=== PATIENT | male | born 1995 | race Caucasian/White ===

== ENCOUNTER 2021-08-10 20:42 | Emergency (ER) | payer BC, OTHER ==
[~2021-08-10] VITALS: Ht 177.8 cm; Wt 121.2 kg
[2021-08-10 21:16] VITALS: BP 152/104
[2021-08-10 21:18] LABS: BILIRUBIN,URINE NEGATIVE (NEGATIVE); CLARITY,URINE CLEAR; COLOR,URINE YELLOW; GLUCOSE, URINE (UA) NEGATIVE (NEGATIVE); KETONES,URINE TRACE (NEGATIVE); LEUKOCYTE ESTERASE ,URINE NEGATIVE (NEGATIVE); NITRITE,URINE NEGATIVE (NEGATIVE); PROTEIN,URINE NEGATIVE (NEGATIVE)
--- NOTE | 2021-08-10 21:23 | ED GU-Male ---
General Chief Complaint: - Reproductive Stated Complaint: GROIN PAIN Source: patient Exam Limitations: no limitations History of Present Illness Date Seen by Provider: Aug 10, 2021 Time Seen by Provider: 21:20 Initial Comments Patient is a 25-year-old male who presents ED with right testicle pain. acute onset this morning. Pain described as dull aching constant with worsening pain this evening. Worse with walking or movement. denies of any obvious swelling or redness. Denies of any urinary symptoms such as pain with urination, increased urine frequency. Denies of any abdominal pain. He is not concern for sexual transmitted infection. Denies of any penile lesions or discharge. Denies of any trauma or history of similar symptoms. Denies chest pain, shortness of breath, fever, chills, headache, dizziness. Allergies and Home Medications Allergies Coded Allergies: No Known Drug Allergies (Unverified , 08/10/21) Patient Home Medication List Levofloxacin (Levofloxacin) 500 Mg Tablet, 500 MG PO DAILY Prescribed by: HERO GAYTAN on 08/10/212236 Review of Systems Review of Systems Constitutional: No chills, No diaphoresis, No malaise, No weakness EENTM: No ear pain, No blurred vision, No double vision Respiratory: No cough, No dyspnea on exertion Cardiovascular: No chest pain Gastrointestinal: No abdominal pain, No diarrhea, No nausea, No vomiting Genitourinary: denies burning, denies discharge, denies frequency, denies flank pain Musculoskeletal: No back pain, No joint pain, No joint swelling Skin: No change in color All Other Systemes Reviewed Negative Unless Noted: Yes Past Hkfilew-[id number]-Tdfdgp Hx Patient Social History Tobacco Use?: Yes Tobacco type used: Cigarettes Smoking Status: Current Everyday Smoker Use of E-Cig and/or Vaping dev: No Substance use?: No Alcohol Use?: No Pt feels they are or have been: No Immunizations Up To Date Influenza Vaccine Up-to-Date: No; Not Current Second COVID19 Vaccination Patric: 08/27 COVID19 Vaccine Nnp: Theresa Physical Exam Vital Signs Vital Signs - First Documented 08/10/21 21:16 Temp 36.9 Pulse 106 Resp 16 B/P (MAP) 152/104 (120) Pulse Ox 98 O2 Delivery Room Air Capillary Refill : Height, Weight, BMI Height: '" Weight: lbs. oz. kg; BMI Method: General Appearance: WD/WN, no apparent distress HEENT: PERRL/EOMI, normal ENT inspection, TMs normal, pharynx normal Neck: non-tender, full range of motion, supple, normal inspection Cardiovascular: regular rate, rhythm, no edema, no gallop, no JVD Respiratory: chest non-tender, lungs clear, normal breath sounds, no respiratory distress, no accessory muscle use Gastrointestinal: normal bowel sounds, non tender, soft, no organomegaly Genital/Rectal: other (Right scrotum tenderness without swelling or erythema. No lesions or penile lesions. 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 tested, no motor/sensory deficits, alert, normal mood/affect, oriented x 3 Skin: normal color, warm/dry Progress/Results/Core Measures Suspected Sepsis SIRS Temperature: Pulse: Respiratory Rate: Laboratory Tests 08/10/21 21:39: White Blood Count 15.6H Blood Pressure / Mean: Laboratory Tests 08/10/21 21:39: Creatinine 1.01, Platelet Count 292, Total Bilirubin 0.6 Results/Orders Lab Results Laboratory Tests Test 08/10/21 21:10 08/10/21 21:39 Range/Units Urine Color YELLOW Urine Clarity CLEAR Urine pH 6.0 5-9 Urine Specific [place] 1.025 H 1.016-1.022 Urine Protein NEGATIVE NEGATIVE Urine Glucose (UA) NEGATIVE NEGATIVE Urine Ketones TRACE H NEGATIVE Urine Nitrite NEGATIVE NEGATIVE Urine Bilirubin NEGATIVE NEGATIVE Urine Urobilinogen 0.2 < = 1.0 MG/DL Urine Leukocyte Esterase NEGATIVE NEGATIVE Urine RBC (Auto) TRACE-I H NEGATIVE Urine RBC 0-2 /HPF Urine WBC NONE /HPF Urine Squamous Epithelial Cells NONE /HPF Urine Renal Epithelial Cells NONE /HPF Urine Crystals NONE /LPF Urine Bacteria NEGATIVE /HPF Urine Casts NONE /LPF Urine Mucus NEGATIVE /LPF Urine Culture Indicated NO White Blood Count 15.6 H 4.3-11.0 10^3/uL Red Blood Count 5.13 4.30-5.52 10^6/uL Hemoglobin 15.8 13.3-17.7 g/dL Hematocrit 47 40-54 % Mean Corpuscular Volume 92 80-99 fL Mean Corpuscular Hemoglobin 31 25-34 pg Mean Corpuscular Hemoglobin Concent 33 32-36 g/dL Red Cell Distribution Width 12.2 10.0-14.5 % Platelet Count 292 130-400 10^3/uL Mean Platelet Volume 9.1 9.0-12.2 fL Immature Granulocyte % (Auto) 1 % Neutrophils (%) (Auto) 69 42-75 % Lymphocytes (%) (Auto) 21 12-44 % Monocytes (%) (Auto) 7 0-12 % Eosinophils (%) (Auto) 2 0-10 % Basophils (%) (Auto) 1 0-10 % Neutrophils # (Auto) 10.8 H 1.8-7.8 10^3/uL Lymphocytes # (Auto) 3.3 1.0-4.0 10^3/uL Monocytes # (Auto) 1.1 H 0.0-1.0 10^3/uL Eosinophils # (Auto) 0.3 0.0-0.3 10^3/uL Basophils # (Auto) 0.1 0.0-0.1 10^3/uL Immature Granulocyte # (Auto) 0.1 0.0-0.1 10^3/uL Neutrophils % (Manual) 76 % Lymphocytes % (Manual) 13 % Monocytes % (Manual) 9 % Blood Morphology Comment NORMAL Sodium Level 137 135-145 MMOL/L Potassium Level 3.9 3.6-5.0 MMOL/L Chloride Level 105 98-107 MMOL/L Carbon Dioxide Level 21 21-32 MMOL/L Anion Gap 11 5-14 MMOL/L Blood Urea Nitrogen 27 H 7-18 MG/DL Creatinine 1.01 0.60-1.30 MG/DL Estimat Glomerular Filtration Rate 105 BUN/Creatinine Ratio 27 Glucose Level 99 70-105 MG/DL Calcium Level 9.2 8.5-10.1 MG/DL Corrected Calcium 8.5-10.1 MG/DL Total Bilirubin 0.6 0.1-1.0 MG/DL Aspartate Amino Transf (AST/SGOT) 27 5-34 U/L Alanine Aminotransferase (ALT/SGPT) 48 0-55 U/L Alkaline Phosphatase 67 40-136 U/L Total Protein 7.2 6.4-8.2 GM/DL Albumin 4.7 H 3.2-4.5 GM/DL My Orders Orders - JAY KILLIAN Ua Culture If Indicated (08/10/21 20:48) Chlamydia Trachomatis Urine (08/10/21 20:48) Neis Talat Dna Urine Test (08/10/21 20:48) Us Scrotum (Testicle) [id number] (08/10/21 21:16) Cbc With Automated Diff (08/10/21 21:16) Comprehensive Metabolic Panel (08/10/21 21:16) Manual Differential (08/10/21 21:39) Levofloxacin Tablet (Levaquin Tablet) (08/10/21 22:32) Vital Signs/I&O 08/10/21 21:16 Temp 36.9 Pulse 106 Resp 16 B/P (MAP) 152/104 (120) Pulse Ox 98 O2 Delivery Room Air Capillary Refill : Departure Communication (PCP) Patient has significant tenderness to his right testicle. There is no swelling or erythema but tenderaround the testicle and epididymis. Cannot rule out testicle or torsion. Ultrasound was ordered. 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 Patient did have an elevated white blood count. Hematuria noted in his urine. He has no abdominal pain or flank pain. No groin lymphadenopathy. Not concern for sexual transmitted infection and was not treated prophylactically. Urine cultures pending. Due to his elevated white blood count and his current symptoms and significant tenderness on palpation. I will treat for potential epididymitis with a dose of Levaquin here. Patient will be discharged with antibiotic. Recommend anti-inflammatories. No sexual intercourse until results of cultures. Impression Primary Impression: Testicular pain Disposition: 01 HOME, SELF-CARE Condition: Stable Departure-Patient Inst. Decision time for Depature: 22:33 Referrals: NO,LOCAL PHYSICIAN (PCP) Primary Care Physician ALYSHA GOMEZ MD Patient Instructions: Epididymitis Add. Discharge Instructions: Recommend taking ibuprofen 600 to 800 mg for the pain as needed. If any worsening symptoms return back to ED for further evaluation. All discharge instructions reviewed with patient and/or family. Voiced understanding. Scripts Levofloxacin (Levofloxacin) 500 Mg Tablet 500 MG PO DAILY for 9 Days, #9 TAB Prov: JAY KILLIAN 08/10/21 Work/School Note: Work Release Form Date Seen in the Emergency Department: Aug 10, 2021 Return to Work: Aug 12, 2021 JAY KILLIAN Aug 10, 2021 21:23
[2021-08-10 21:24] LABS: BACTERIA,URINE NEGATIVE /HPF; RBC,URINE 0-2 /HPF
[2021-08-10 21:43] LABS: BASOPHILS # (AUTO) 0.1 10^3/uL (0.0-0.1); BASOPHILS % (AUTO) 1 % (0-10); EOSINOPHILS # (AUTO) 0.3 10^3/uL (0.0-0.3); EOSINOPHILS % (AUTO) 2 % (0-10); HEMATOCRIT 47 % (40-54); HEMOGLOBIN 15.8 g/dL (13.3-17.7); LYMPHOCYTES # (AUTO) 3.3 10^3/uL (1.0-4.0); LYMPHOCYTES % (AUTO) 21 % (12-44); MEAN CORPUSCULAR HEMOGLOBIN 31 pg (25-34); MEAN CORPUSCULAR HGB CONC 33 g/dL (32-36); MEAN CORPUSCULAR VOLUME 92 fL (80-99); MEAN PLATELET VOLUME 9.1 fL (9.0-12.2); MONOCYTES # (AUTO) 1.1 10^3/uL (0.0-1.0); MONOCYTES % (AUTO) 7 % (0-12); NEUTROPHILS # (AUTO) 10.8 10^3/uL (1.8-7.8); NEUTROPHILS % (AUTO) 69 % (42-75); PLATELET COUNT 292 10^3/uL (130-400); WHITE BLOOD COUNT 15.6 10^3/uL (4.3-11.0)
[2021-08-10 21:55] LABS: ALBUMIN 4.7 GM/DL (3.2-4.5); CHLORIDE 105 MMOL/L (98-107); POTASSIUM 3.9 MMOL/L (3.6-5.0); SODIUM 137 MMOL/L (135-145)
[2021-08-10 21:56] LABS: CALCIUM 9.2 MG/DL (8.5-10.1)
[2021-08-10 21:58] LABS: GLUCOSE 99 MG/DL (70-105); LYMPHOCYTES % (MANUAL) 13 %; MONOCYTES % (MANUAL) 9 %; NEUTROPHILS % (MANUAL) 76 %; RBC MORPH NORMAL; TOTAL PROTEIN 7.2 GM/DL (6.4-8.2)
[2021-08-10 21:59] LABS: CARBON DIOXIDE 21 MMOL/L (21-32)
[2021-08-10 22:00] LABS: BILIRUBIN,TOTAL 0.6 MG/DL (0.1-1.0)
[2021-08-10 22:01] LABS: ALKALINE PHOSPHATASE 67 U/L (40-136)
[2021-08-10 22:02] LABS: CREATININE SERUM 1.01 MG/DL (0.60-1.30); GFR ESTIMATED 105
[2021-08-10 22:03] LABS: BUN/CREATININE RATIO 27
[2021-08-10 22:04] LABS: ALANINE AMINOTRANSFERASE 48 U/L (0-55)
[2021-08-10] MEDS ORDERED: LEVO500T81 PO (22:37)
--- NOTE | 2021-08-10 22:38 | Diagnostic Imaging Report ---
PROCEDURE: US Scrotum w/ Duplex TECHNIQUE: Multiple realtime alcaraz images were obtained of the scrotum in various projections bilaterally. Color Doppler images were also obtained. INDICATION: Right-sided testicular pain. COMPARISON: None. FINDINGS: The testicles are normal in size, shape and echogenicity. The right testis measures 4.4 x 2.2 x 2.7 cm. The left testis measures 4.0 x 2.1 x 2.8 cm. There is normal color flow Doppler signal of both testicles. No focal testicular mass is seen on either side. The right and left epididymides are unremarkable. There is no sonographic evidence of epididymitis. IMPRESSION: 1. Normal testicular sonogram. No evidence of mass or torsion. No evidence of orchitis/epididymitis. Dictated by: Dictated on workstation # [id number]
== END 2021-08-10 22:52 | disposition home or self-care (01) ==
LOC: ER 20:45
DX: N50.811 Right testicular pain (principal); D72.829 Elevated white blood cell count, unspecified; R31.9 Hematuria, unspecified; F17.210 Nicotine dependence, cigarettes, uncomplicated
CPT/HCPCS: 36415; 76870; 80053; 81000; 85007; 85027; 87491; 87591